=== PATIENT | female | born 1985 | race American Indian/Alaskan Native ===

== ENCOUNTER 2016-10-13 08:57 | Outpatient (CLI) | payer MEDICAID ==
[2016-10-13] MEDS ORDERED: XYLOCAINE TOPICAL 4% TP ONE ×2 (09:12→15:00)
== END 2016-10-13 08:58 | disposition home or self-care (01) ==
LOC: WOUND 08:57
PROVIDERS: ATTEND Internal Medicine
DX: L97.821 Non-pressure chronic ulcer of other part of left lower leg limited to breakdown of skin (principal); D57.1 Sickle-cell disease without crisis; D50.8 Other iron deficiency anemias; Z87.891 Personal history of nicotine dependence
CPT/HCPCS: 11042; 87075; 87116; G0463; 87076; 87186

== ENCOUNTER 2016-10-19 09:15 | Outpatient (CLI) | payer MEDICAID ==
[2016-10-19] MEDS ORDERED: XYLOCAINE TOPICAL 4% TP ONE ×2 (09:24→15:21)
[2016-10-19] MEDS ORDERED: SANTYL TP ONE (10:14)
[2016-10-20] MEDS ORDERED: SANTYL TP SCH (10:00)
== END 2016-10-19 09:16 | disposition home or self-care (01) ==
LOC: WOUND 09:15
PROVIDERS: ATTEND Podiatrist
DX: L97.322 Non-pressure chronic ulcer of left ankle with fat layer exposed (principal); D57.1 Sickle-cell disease without crisis; Z87.891 Personal history of nicotine dependence

== ENCOUNTER 2016-10-26 09:01 | Outpatient (CLI) | payer MEDICAID ==
[2016-10-26] MEDS ORDERED: XYLOCAINE TOPICAL 4% TP ONE (09:29)
== END 2016-10-26 09:02 | disposition home or self-care (01) ==
LOC: WOUND 09:01
PROVIDERS: ATTEND Podiatrist
DX: L97.322 Non-pressure chronic ulcer of left ankle with fat layer exposed (principal); D57.1 Sickle-cell disease without crisis; Z87.891 Personal history of nicotine dependence

== ENCOUNTER 2016-11-16 09:24 | Outpatient (CLI) | payer MEDICAID ==
[2016-11-16] MEDS ORDERED: XYLOCAINE TOPICAL 4% TP ONE ×2 (09:34→10:30)
[2016-11-16] MEDS ORDERED: XYLOCAINE TOPICAL 2% ONE (10:07)
[2016-11-16] MEDS ORDERED: SANTYL TP ONE (10:22)
[2016-11-18] MEDS ORDERED: ANCEF ONE ×2 (05:45→06:59)
[2016-11-18] MEDS ORDERED: BACITRACIN ONE (06:59)
[2016-11-18] MEDS ORDERED: GARAMYCIN ONE (06:59)
[2016-11-18] MEDS ORDERED: DIPRIVAN 10 MG/ML IV ONE (06:59)
[2016-11-18] MEDS ORDERED: DILAUDID ONE (07:00)
[2016-11-18] MEDS ORDERED: XYLOCAINE MPF 2% ONE (07:01)
[2016-11-18] MEDS ORDERED: ZOFRAN ONE (07:01)
[2016-11-18] MEDS ORDERED: DECADRON ONE (07:01)
[2016-11-18] MEDS ORDERED: ePHEDrine SULFATE ONE (07:57)
[2016-11-18] MEDS ORDERED: PHENERGAN ONE (09:30)
[2016-11-18] MEDS ORDERED: PERCOCET 5/325 ONE (09:30)
== END 2016-11-16 09:25 | disposition home or self-care (01) ==
LOC: WOUND 09:24
PROVIDERS: ATTEND Podiatrist
DX: L97.322 Non-pressure chronic ulcer of left ankle with fat layer exposed (principal); L97.312 Non-pressure chronic ulcer of right ankle with fat layer exposed; D57.1 Sickle-cell disease without crisis; D50.8 Other iron deficiency anemias; Z87.891 Personal history of nicotine dependence

== ENCOUNTER 2016-12-01 09:12 | Outpatient (CLI) | payer MEDICAID ==
[~2016-12-01 09:12] MED LIST: XYLOCAINE TOPICAL 4% TP ONE
[2016-12-01] MEDS ORDERED: XYLOCAINE TOPICAL 2% TP ONE ×2 (09:27→15:16)
[2016-12-01] MEDS ORDERED: SANTYL TP ONE ×2 (09:49→15:17)
[2016-12-01] MEDS ORDERED: XYLOCAINE TOPICAL 4% TP ONE (15:16)
== END 2016-12-01 09:13 | disposition home or self-care (01) ==
LOC: WOUND 09:12
PROVIDERS: ATTEND Podiatrist
DX: L97.322 Non-pressure chronic ulcer of left ankle with fat layer exposed (principal); L97.312 Non-pressure chronic ulcer of right ankle with fat layer exposed; D57.1 Sickle-cell disease without crisis; Z87.891 Personal history of nicotine dependence
CPT/HCPCS: 11042; G0463

== ENCOUNTER 2016-12-07 09:13 | Outpatient (CLI) | payer MEDICAID ==
[2016-12-07] MEDS ORDERED: XYLOCAINE TOPICAL 2% TP ONE ×2 (09:39→09:53)
== END 2016-12-07 09:14 | disposition home or self-care (01) ==
LOC: WOUND 09:13
PROVIDERS: ATTEND Podiatrist
DX: L97.322 Non-pressure chronic ulcer of left ankle with fat layer exposed (principal); L97.312 Non-pressure chronic ulcer of right ankle with fat layer exposed; D57.1 Sickle-cell disease without crisis; D50.8 Other iron deficiency anemias; Z87.891 Personal history of nicotine dependence

== ENCOUNTER 2016-12-14 08:45 | Outpatient (CLI) | payer MEDICAID ==
[2016-12-14] MEDS ORDERED: XYLOCAINE TOPICAL 2% TP ONE ×2 (09:16→09:55)
[2016-12-14] MEDS ORDERED: SANTYL TP ONE ×2 (09:38→09:54)
== END 2016-12-14 08:46 | disposition home or self-care (01) ==
LOC: WOUND 08:45
PROVIDERS: ATTEND Podiatrist
DX: L97.322 Non-pressure chronic ulcer of left ankle with fat layer exposed (principal); L97.312 Non-pressure chronic ulcer of right ankle with fat layer exposed; D57.1 Sickle-cell disease without crisis; Z87.891 Personal history of nicotine dependence

== ENCOUNTER 2016-12-21 08:26 | Outpatient (CLI) | payer MEDICAID ==
[2016-12-21] MEDS ORDERED: XYLOCAINE TOPICAL 4% TP ONE ×2 (09:18→12:21)
== END 2016-12-21 08:27 | disposition home or self-care (01) ==
LOC: WOUND 08:26
PROVIDERS: ATTEND Podiatrist
DX: L97.322 Non-pressure chronic ulcer of left ankle with fat layer exposed (principal); L97.312 Non-pressure chronic ulcer of right ankle with fat layer exposed; D57.1 Sickle-cell disease without crisis; D50.8 Other iron deficiency anemias; Z87.891 Personal history of nicotine dependence

== ENCOUNTER 2016-12-28 08:31 | Outpatient (CLI) | payer MEDICAID ==
[2016-12-28] MEDS ORDERED: XYLOCAINE TOPICAL 4% TP ONE ×2 (08:38→13:12)
[2016-12-28] MEDS ORDERED: XYLOCAINE TOPICAL 2% ONE (08:46)
[2016-12-28] MEDS ORDERED: XYLOCAINE TOPICAL 2% TP ONE ×2 (08:47→13:12)
== END 2016-12-28 08:32 | disposition home or self-care (01) ==
LOC: WOUND 08:31
PROVIDERS: ATTEND Podiatrist
DX: L97.311 Non-pressure chronic ulcer of right ankle limited to breakdown of skin (principal); L97.321 Non-pressure chronic ulcer of left ankle limited to breakdown of skin; D50.8 Other iron deficiency anemias; D57.1 Sickle-cell disease without crisis; Z87.891 Personal history of nicotine dependence

== ENCOUNTER 2017-01-04 10:27 | Outpatient (CLI) | payer MEDICAID ==
[2017-01-04] MEDS ORDERED: XYLOCAINE TOPICAL 2% TP ONE (11:06)
[2017-01-04] MEDS ORDERED: XYLOCAINE TOPICAL 4% TP ONE ×2 (11:06→11:35)
== END 2017-01-04 10:28 | disposition home or self-care (01) ==
LOC: WOUND 10:27
PROVIDERS: ATTEND Surgery
DX: L97.322 Non-pressure chronic ulcer of left ankle with fat layer exposed (principal); L97.312 Non-pressure chronic ulcer of right ankle with fat layer exposed; D57.1 Sickle-cell disease without crisis; G47.30 Sleep apnea, unspecified; Z87.891 Personal history of nicotine dependence

== ENCOUNTER 2017-01-11 08:26 | Outpatient (CLI) | payer MEDICAID ==
[2017-01-11] MEDS ORDERED: XYLOCAINE TOPICAL 4% TP ONE (10:00)
[2017-01-11] MEDS ORDERED: XYLOCAINE TOPICAL 2% TP ONE (10:00)
== END 2017-01-11 08:27 | disposition home or self-care (01) ==
LOC: WOUND 08:26
PROVIDERS: ATTEND Surgery
DX: L97.321 Non-pressure chronic ulcer of left ankle limited to breakdown of skin (principal); L97.311 Non-pressure chronic ulcer of right ankle limited to breakdown of skin; D57.1 Sickle-cell disease without crisis; Z87.891 Personal history of nicotine dependence

== ENCOUNTER 2017-01-18 08:32 | Outpatient (CLI) | payer MEDICAID ==
[2017-01-18] MEDS ORDERED: XYLOCAINE TOPICAL 4% TP ONE (08:38)
[2017-01-18] MEDS ORDERED: XYLOCAINE TOPICAL 2% ONE (08:40)
[2017-01-18] MEDS ORDERED: XYLOCAINE TOPICAL 2% TP ONE (10:00)
== END 2017-01-18 08:33 | disposition home or self-care (01) ==
LOC: WOUND 08:32
PROVIDERS: ATTEND Surgery
DX: L97.322 Non-pressure chronic ulcer of left ankle with fat layer exposed (principal); L97.312 Non-pressure chronic ulcer of right ankle with fat layer exposed; D57.1 Sickle-cell disease without crisis; G47.30 Sleep apnea, unspecified; Z87.891 Personal history of nicotine dependence

== ENCOUNTER 2017-01-25 08:32 | Outpatient (CLI) | payer MEDICAID ==
[2017-01-25] MEDS ORDERED: XYLOCAINE TOPICAL 2% TP ONE ×2 (08:44)
[2017-01-25] MEDS ORDERED: XYLOCAINE TOPICAL 4% TP ONE ×2 (08:44)
== END 2017-01-25 08:33 | disposition home or self-care (01) ==
LOC: WOUND 08:32
PROVIDERS: ATTEND Surgery
DX: L97.311 Non-pressure chronic ulcer of right ankle limited to breakdown of skin (principal); D57.80 Other sickle-cell disorders without crisis; Z87.891 Personal history of nicotine dependence
CPT/HCPCS: 97597

== ENCOUNTER 2017-02-01 09:19 | Outpatient (CLI) | payer MEDICAID ==
[2017-02-01] MEDS ORDERED: XYLOCAINE TOPICAL 4% TP ONE (10:08)
[2017-02-01] MEDS ORDERED: XYLOCAINE TOPICAL 2% TP ONE (11:00)
== END 2017-02-01 09:20 | disposition home or self-care (01) ==
LOC: WOUND 09:19
PROVIDERS: ATTEND Surgery
DX: L97.322 Non-pressure chronic ulcer of left ankle with fat layer exposed (principal); L97.312 Non-pressure chronic ulcer of right ankle with fat layer exposed; D57.1 Sickle-cell disease without crisis; G47.30 Sleep apnea, unspecified; Z87.891 Personal history of nicotine dependence

== ENCOUNTER 2017-02-08 09:12 | Outpatient (CLI) | payer MEDICAID ==
[2017-02-08] MEDS ORDERED: XYLOCAINE TOPICAL 4% TP ONE ×2 (09:15→09:34)
[2017-02-08] MEDS ORDERED: XYLOCAINE TOPICAL 2% ONE (09:16)
[2017-02-08] MEDS ORDERED: XYLOCAINE TOPICAL 2% TP ONE (09:34)
== END 2017-02-08 09:13 | disposition home or self-care (01) ==
LOC: WOUND 09:12
PROVIDERS: ATTEND Surgery
DX: L97.322 Non-pressure chronic ulcer of left ankle with fat layer exposed (principal); L97.312 Non-pressure chronic ulcer of right ankle with fat layer exposed; D57.1 Sickle-cell disease without crisis; G47.30 Sleep apnea, unspecified; Z87.891 Personal history of nicotine dependence

== ENCOUNTER 2017-02-15 08:47 | Outpatient (CLI) | payer MEDICAID ==
[2017-02-15] MEDS ORDERED: XYLOCAINE TOPICAL 4% TP ONE (09:08)
[2017-02-15] MEDS ORDERED: XYLOCAINE TOPICAL 2% TP ONE (09:08)
== END 2017-02-15 08:48 | disposition home or self-care (01) ==
LOC: WOUND 08:47
PROVIDERS: ATTEND Surgery
DX: I87.2 Venous insufficiency (chronic) (peripheral) (principal); L97.321 Non-pressure chronic ulcer of left ankle limited to breakdown of skin; L97.311 Non-pressure chronic ulcer of right ankle limited to breakdown of skin; D57.80 Other sickle-cell disorders without crisis; Z87.891 Personal history of nicotine dependence

== ENCOUNTER 2017-02-22 09:11 | Outpatient (CLI) | payer MEDICAID ==
[2017-02-22] MEDS ORDERED: XYLOCAINE TOPICAL 2% TP ONE ×2 (09:19→09:27)
[2017-02-22] MEDS ORDERED: XYLOCAINE TOPICAL 4% TP ONE ×2 (09:27→09:29)
[2017-02-22] MEDS ORDERED: SILVER NITRATE TP ONE ×2 (09:50→15:21)
== END 2017-02-22 09:12 | disposition home or self-care (01) ==
LOC: WOUND 09:11
PROVIDERS: ATTEND Surgery
DX: L97.322 Non-pressure chronic ulcer of left ankle with fat layer exposed (principal); L97.312 Non-pressure chronic ulcer of right ankle with fat layer exposed; D57.1 Sickle-cell disease without crisis; G47.30 Sleep apnea, unspecified; Z87.891 Personal history of nicotine dependence

== ENCOUNTER 2017-03-01 09:07 | Outpatient (CLI) | payer MEDICAID ==
[2017-03-01] MEDS ORDERED: XYLOCAINE TOPICAL 4% TP ONE ×2 (09:17→09:24)
[2017-03-01] MEDS ORDERED: XYLOCAINE TOPICAL 2% ONE (09:17)
[2017-03-01] MEDS ORDERED: XYLOCAINE TOPICAL 2% TP ONE (09:24)
== END 2017-03-01 09:08 | disposition home or self-care (01) ==
LOC: WOUND 09:07
PROVIDERS: ATTEND Surgery
DX: L97.322 Non-pressure chronic ulcer of left ankle with fat layer exposed (principal); L97.312 Non-pressure chronic ulcer of right ankle with fat layer exposed; D57.1 Sickle-cell disease without crisis; G47.30 Sleep apnea, unspecified; Z87.891 Personal history of nicotine dependence

== ENCOUNTER 2017-03-11 08:32 | Outpatient (CLI) | payer MEDICAID ==
[2017-03-11] MEDS ORDERED: XYLOCAINE TOPICAL 2% TP ONE ×2 (08:49→11:30)
[2017-03-11] MEDS ORDERED: XYLOCAINE TOPICAL 4% TP ONE ×2 (08:49→11:30)
== END 2017-03-11 08:33 | disposition home or self-care (01) ==
LOC: WOUND 08:32
PROVIDERS: ATTEND Podiatrist
DX: L97.322 Non-pressure chronic ulcer of left ankle with fat layer exposed (principal); L97.312 Non-pressure chronic ulcer of right ankle with fat layer exposed; D57.1 Sickle-cell disease without crisis; D50.8 Other iron deficiency anemias; G47.30 Sleep apnea, unspecified; Z87.891 Personal history of nicotine dependence

== ENCOUNTER 2017-03-15 08:37 | Outpatient (CLI) | payer MEDICAID ==
[2017-03-15] MEDS ORDERED: XYLOCAINE TOPICAL 2% TP ONE ×2 (08:52→10:00)
[2017-03-15] MEDS ORDERED: XYLOCAINE TOPICAL 4% TP ONE ×2 (08:52→10:00)
== END 2017-03-15 08:38 | disposition home or self-care (01) ==
LOC: WOUND 08:37
PROVIDERS: ATTEND Surgery
DX: L97.322 Non-pressure chronic ulcer of left ankle with fat layer exposed (principal); L97.312 Non-pressure chronic ulcer of right ankle with fat layer exposed; D57.1 Sickle-cell disease without crisis; G47.30 Sleep apnea, unspecified; Z87.891 Personal history of nicotine dependence

== ENCOUNTER 2017-03-22 08:36 | Outpatient (CLI) | payer MEDICAID ==
[2017-03-22] MEDS ORDERED: XYLOCAINE TOPICAL 4% TP ONE (08:53)
[2017-03-22] MEDS ORDERED: XYLOCAINE TOPICAL 2% TP ONE (08:53)
== END 2017-03-22 08:37 | disposition home or self-care (01) ==
LOC: WOUND 08:36
PROVIDERS: ATTEND Surgery
DX: L97.322 Non-pressure chronic ulcer of left ankle with fat layer exposed (principal); L97.312 Non-pressure chronic ulcer of right ankle with fat layer exposed; D57.1 Sickle-cell disease without crisis; G47.30 Sleep apnea, unspecified; Z87.891 Personal history of nicotine dependence

== ENCOUNTER 2017-03-29 08:47 | Outpatient (CLI) | payer MEDICAID ==
[2017-03-29] MEDS ORDERED: XYLOCAINE TOPICAL 2% TP ONE (09:06)
[2017-03-29] MEDS ORDERED: XYLOCAINE TOPICAL 4% TP ONE (12:33)
== END 2017-03-29 08:48 | disposition home or self-care (01) ==
LOC: WOUND 08:47
PROVIDERS: ATTEND Surgery
DX: L97.322 Non-pressure chronic ulcer of left ankle with fat layer exposed (principal); L97.312 Non-pressure chronic ulcer of right ankle with fat layer exposed; D57.1 Sickle-cell disease without crisis; G47.30 Sleep apnea, unspecified; Z87.891 Personal history of nicotine dependence

== ENCOUNTER 2017-04-05 09:42 | Outpatient (CLI) | payer MEDICAID ==
[2017-04-05] MEDS ORDERED: XYLOCAINE TOPICAL 4% TP ONE ×2 (09:52→09:58)
[2017-04-05] MEDS ORDERED: XYLOCAINE TOPICAL 2% TP ONE ×2 (10:05→10:15)
== END 2017-04-05 09:43 | disposition home or self-care (01) ==
LOC: WOUND 09:42
PROVIDERS: ATTEND Surgery
DX: L97.322 Non-pressure chronic ulcer of left ankle with fat layer exposed (principal); L97.312 Non-pressure chronic ulcer of right ankle with fat layer exposed; D57.1 Sickle-cell disease without crisis; G47.30 Sleep apnea, unspecified; Z87.891 Personal history of nicotine dependence

== ENCOUNTER 2019-02-19 09:00 | Emergency (ER) | payer OTHER ==
[2019-02-19 10:15] LABS: Basophils % (Auto) 0.3 % (0.0-1.8); Eosinophils # (Auto) 0.4 K/mm3 (0.0-0.4); Eosinophils % (Auto) 3.6 % (0.0-4.3); Lymphocytes # (Auto) 3.1 K/mm3 (1.2-5.4); Lymphocytes % (Auto) 24.5 % (13.4-35.0); Mean Corpuscular HGB Conc 36 % (30-34); Mean Corpuscular Volume 105 fl (79-97); Monocytes # (Auto) 1.5 K/mm3 (0.0-0.8); Monocytes % (Auto) 11.7 % (0.0-7.3); Platelet Count 351 K/mm3 (140-440); Red Blood Count 1.87 M/mm3 (3.65-5.03); Red Cell Distribution Width 17.8 % (13.2-15.2)
[2019-02-19 10:25] LABS: INR 1.34 (0.87-1.13); Partial Thromboplastin Time 29.9 Sec. (24.2-36.6)
[2019-02-19 10:34] LABS: Hematocrit 19.6 % (30.3-42.9)
[2019-02-19 10:35] LABS: Alanine Aminotransferase 10 units/L (7-56); BUN/Creatinine Ratio 13; Blood Urea Nitrogen 4 mg/dL (7-17); Calcium 8.5 mg/dL (8.4-10.2); Hemolysis Index 3
--- NOTE | 2019-02-19 11:28 | Emergency Department Report ---
HPI - General Chief Complaint: Sickle Cell Crisis Time Seen by Provider: 02/19/19 09:36 - HPI HPI: 33-year-old [place] female presents to the emergency department with 2 different complaints. First, the patient complains of some chronic ulcers to the inside of the ankles that she says are pressure ulcers and she thinks that they have started to become infected, mostly with the left ankle. She says that she has some history of poor circulation and she has a history of sickle cell anemia. She says that she has been changing the bandages daily herself and does not have a primary care physician or care clinic as she has a lack of insurance. Secondly, the patient complains of some irregular vaginal bleeding. She says her last normal menstrual cycle was in December but she is currently having 11 days of vaginal bleeding that was moderate and now has started to just be some spotting. She denies any significant abdominal or pelvic pain. No recent travel or sick contacts at home. The patient has not taken anything for her symptoms prior to presentation. ED Past Medical Hx - Past Medical History Previous Medical History?: Yes Hx Diabetes: No Hx Sickle Cell Disease: Yes Additional medical history: [facility] - Surgical History Past Surgical History?: Yes Hx Cholecystectomy: Yes Additional Surgical History: t&a - Social History Smoking Status: Former Smoker Substance Use Type: Alcohol - Medications Home Medications: Home Medications Medication Instructions Recorded Confirmed Last Taken Type Folic Acid [Folvite] 1 mg PO QDAY 01/04/14 09/02/15 02/06/14 History Acetaminophen-Codeine #3 TAB 1 tab PO Q4-6H PRN 03/31/15 09/02/15 Unknown History Vit-Fe Fumar-FA [ 1 tab PO QDAY #30 tablet 02/19/19 Unknown Rx Vitamin] cephALEXin [Keflex] 500 mg PO Q8HR #21 cap 02/19/19 Unknown Rx ED Review of Systems ROS: Stated complaint: SICKLE CELL ISSUE/SPOTTING/CRAMPS Other details as noted in HPI Comment: All other systems reviewed and negative Constitutional: denies: chills, fever Eyes: denies: eye pain, vision change ENT: denies: ear pain, throat pain Respiratory: denies: cough, shortness of breath Cardiovascular: denies: chest pain, palpitations Gastrointestinal: denies: nausea, vomiting Genitourinary: abnormal menses. denies: dysuria, discharge Musculoskeletal: myalgia. denies: joint swelling Skin: lesions. denies: pruritus Neurological: denies: headache, numbness Physical Exam - Physical Exam Vital Signs: Vital Signs 02/19/19 09:14 Temperature 98.6 F Pulse Rate 90 Respiratory 16 Rate Blood Pressure 106/51 O2 Sat by Pulse 97 Oximetry Physical Exam: GENERAL: The patient is well-developed well-nourished. HENT: Normocephalic. Atraumatic. Patient has moist mucous membranes. EYES: Extraocular motions are intact. Pupils equal reactive to light bilaterally. NECK: Supple. Trachea is midline. CHEST/LUNGS: Clear to auscultation. There is no respiratory distress noted. HEART/CARDIOVASCULAR: Regular. There is no tachycardia. There is no murmur. ABDOMEN: Abdomen is soft, nontender. Patient has normal bowel sounds. There is no abdominal distention. SKIN: The patient has a circular ulcerating wound to each medial ankle/foot with the left greater than right, and both appear to be about a stage II to 3. The left one has some whitish yellowish discharge. NEURO: The patient is awake, alert, and oriented. The patient is cooperative. The patient has no focal neurologic deficits. The patient has normal speech. MUSCULOSKELETAL: There is no tenderness or deformity. There is no evidence of acute injury. ED Course Vital Signs 02/19/19 09:14 Temperature 98.6 F Pulse Rate 90 Respiratory 16 Rate Blood Pressure 106/51 O2 Sat by Pulse 97 Oximetry ED Medical Decision Making - Lab Data Result diagrams: 02/19/19 10:01 02/19/19 10:01 - Radiology Data Radiology results: report reviewed, image reviewed interpreted by me: X-ray of the bilateral ankles does not show any fracture, dislocation, or signs of osteomyelitis ULTRASOUND OB LESS THAN 14 WEEKS FETUS ULTRASOUND OB TRANSVAGINAL History: Vaginal bleeding during . Beta hCG level measures 392.7. Findings: Transabdominal and transvaginal imaging was performed. The uterus measures 8.9 x 2.9 x 6.2 cm. A hypoechoic submucosal fibroid in the left lateral wall measures 1.4 x 1.2 cm. A smaller intramural fibroid in the right lateral wall measures 0.8 cm. There is suggestion of a tiny gestational sac within the endometrium. A tiny pole is suggested. No obvious yolk sac. This could represent a very early intrauterine . heart rate measures 96 beats per minute. The right ovary measures 1.6 x 1.7 x 3.0 cm. A 1.9 cm right ovarian cyst containing a single internal septation is identified. The left ovary is unremarkable measuring 2.6 x 1.5 x 2.8 cm IMPRESSION: Probable very early intrauterine as outlined above. Close interval followup is recommended. Right ovarian cyst. Mild uterine fibroid disease. Transcribed By: TTR Dictated By: LITA BERMAN JR, MD Electronically Authenticated By: LITA BERMAN JR, MD Signed Date/Time: 02/19/19 1420 ULTRASOUND ABDOMEN LIMITED: TECHNIQUE: Transabdominal ultrasound with color Doppler interrogation. HISTORY: Abdominal pain. COMPARISON: none. FINDINGS: LIVER: Normal. BILIARY SYSTEM: Cholecystectomy changes are noted. No biliary dilatation. PANCREAS: Normal. RIGHT KIDNEY: Normal. PROXIMAL AORTA: Normal. ASCITES: None. IMPRESSION: Unremarkable exam. Transcribed By: TTR Dictated By: LITA BERMAN JR, MD Electronically Authenticated By: LITA BERMAN JR, MD Signed Date/Time: 02/19/19 1413 - Medical Decision Making This patient came in for 2 complaints. Regarding the pressure wounds to her ankle/feet, an x-ray was done that does not show any signs of osteomyelitis. The patient does not have any fever and no leukocytosis. They appear to be a stage II and the left one may have some mild discharge but otherwise no gas or crepitus. Patient was placed on some antibiotics and she was given a referral for the wound care center. Regarding her abnormal vaginal bleeding, the patient was found to be with a urine test and then had a quantitative beta hCG of about 400. An ultrasound was done that did show a gestational sac, yolk sac and a very small pole with a heartbeat of about 95 that could show a very early , but with the vaginal bleeding also could be a threatened or impending miscarriage. I spoke to the [facility] service station attendant, Debbie, who says that the patient should follow up in a few days for a repeat hormone level and possibly an ultrasound to evaluate the . Regarding her hemoglobin of 7, they stated that they usually do not necessarily transfuse at this number and will send the patient's home on a clear vitamin with iron. Given that the patient has sickle cell anemia, with this hemoglobin of 7, and still some mild vaginal bleeding, I decided to give the patient 1 unit of packed red blood cells. She was evaluated for this transfusion with no adverse reactions. She was given multiple referrals for [facility]. She will return to the ER for any worsening of her symptoms or any acute distress. Critical Care Time: No Critical care attestation.: If time is entered above; I have spent that time in minutes in the direct care of this critically ill patient, excluding procedure time. ED Disposition Clinical Impression: Threatened miscarriage, Bilateral leg ulcer Sickle cell anemia Qualifiers: Sickle-cell associated disorders: with unspecified crisis Qualified Code(s): D 57.00 - Hb-SS disease with crisis, unspecified Qualifiers: Weeks of gestation: less than 8 weeks Qualified Code(s): Z3A.01 - Less than 8 weeks gestation of Anemia Qualifiers: Anemia type: unspecified type Qualified Code(s): D64.9 - Anemia, unspecified Disposition: TO HOME OR SELFCARE Is pt being admited?: No Condition: Stable Instructions: (ED), Sickle Cell Crisis (ED), Anemia (ED) Additional Instructions: Please follow up with primary care physician and/or mortar carrier. Please follow-up with an [facility] in the next few days for a repeat hormone level and possibly ultrasound. Return to the emergency department with any worsening of your symptoms, especially any increased vaginal bleeding, development of abdominal or pelvic pains, or with any acute distress. Take the vitamins. Take the antibiotics as prescribed. Prescriptions: cephALEXin [Keflex] 500 mg PO Q8HR #21 cap Vit-Fe Fumar-FA [ Vitamin] 1 tab PO QDAY #30 tablet Referrals: [facility] [Provider Group] - 3-5 Days [facility] [Provider Group[facility] - 3-5 Days [facility] [Provider Group] - 3-5 Days [facility] [Outside] - 3-5 Days [facility] [Outside] - 3-5 Days Time of Disposition: 16:10
--- NOTE | 2019-02-19 11:45 | XRay Report ---
BILATERAL ANKLES, 3 VIEWS History: Ankle pain with pressure ulcers. Findings: Soft tissue ulceration is identified medially in both ankles. The bony structures are mildly demineralized. There is no evidence for fracture, bone lesion or bony destruction. No findings to suggest osteomyelitis on x-ray. No significant joint pathology. Impression: Soft tissue findings as described. No acute osseous findings are appreciated.
--- NOTE | 2019-02-19 14:22 | Ultrasound Report ---
ULTRASOUND ABDOMEN LIMITED: TECHNIQUE: Transabdominal ultrasound with color Doppler interrogation. HISTORY: Abdominal pain. COMPARISON: none. FINDINGS: LIVER: Normal. BILIARY SYSTEM: Cholecystectomy changes are noted. No biliary dilatation. PANCREAS: Normal. RIGHT KIDNEY: Normal. PROXIMAL AORTA: Normal. ASCITES: None. IMPRESSION: Unremarkable exam.
--- NOTE | 2019-02-19 14:26 | Ultrasound Report ---
ULTRASOUND OB LESS THAN 14 WEEKS FETUS ULTRASOUND OB TRANSVAGINAL History: Vaginal bleeding during . Beta hCG level measures 392.7. Findings: Transabdominal and transvaginal imaging was performed. The uterus measures 8.9 x 2.9 x 6.2 cm. A hypoechoic submucosal fibroid in the left lateral wall measures 1.4 x 1.2 cm. A smaller intramural fibroid in the right lateral wall measures 0.8 cm. There is suggestion of a tiny gestational sac within the endometrium. A tiny pole is suggested. No obvious yolk sac. This could represent a very early intrauterine . heart rate measures 96 beats per minute. The right ovary measures 1.6 x 1.7 x 3.0 cm. A 1.9 cm right ovarian cyst containing a single internal septation is identified. The left ovary is unremarkable measuring 2.6 x 1.5 x 2.8 cm IMPRESSION: Probable very early intrauterine as outlined above. Close interval followup is recommended. Right ovarian cyst. Mild uterine fibroid disease.
[2019-02-19] MEDS ORDERED: NACL 0.9% 500 ML 500 ML IV ONE (14:48)
[2019-02-19 20:11] VITALS: BP 111/50
== END 2019-02-19 20:10 | disposition home or self-care (01) ==
LOC: ED 09:00
DX: O20.0 Threatened abortion (principal); O99.011 Anemia complicating pregnancy, first trimester; D57.1 Sickle-cell disease without crisis; L97.829 Non-pressure chronic ulcer of other part of left lower leg with unspecified severity; L97.819 Non-pressure chronic ulcer of other part of right lower leg with unspecified severity; Z3A.01 Less than 8 weeks gestation of pregnancy; Z88.2 Allergy status to sulfonamides; Z90.49 Acquired absence of other specified parts of digestive tract; Z87.891 Personal history of nicotine dependence
CPT/HCPCS: 36415; 36430; 73610; 76705; 76801; 76817; 80053; 84702; 84703; 85025; 85045; 85610; 85660; 85730; 86850; 86900; 86901; 86922; 99285; J7040; P9016

== ENCOUNTER 2019-04-09 11:16 | Emergency (ER) | payer SELFPAY ==
[2019-04-09 11:59] VITALS: BP 113/60
[2019-04-09] MEDS ORDERED: IBUPROFEN PO ONE ×2 (12:02→12:05)
--- NOTE | 2019-04-09 12:04 | Event Note ---
ED Screening Note Date of service: 04/09/19 Time: 12:04 ED Screening Note: 33 y/o female comes in for bilateral ankle wounds and left foot swelling. Wound has been for a year. This initial assessment/diagnostic orders/clinical plan/treatment(s) is/are subject to change based on patients health status, clinical progression and re- assessment by fellow clinical providers in the ED. Further treatment and workup at subsequent clinical providers discretion. Patient/guardian urged not to elope from the ED as their condition may be serious if not clinically assessed and managed. Initial orders include:
[2019-04-09 12:19] LABS: Basophils # (Auto) 0.2 K/mm3 (0.0-0.1); Basophils % (Auto) 1.1 % (0.0-1.8); Eosinophils % (Auto) 7.4 % (0.0-4.3); Hemoglobin 7.5 gm/dl (10.1-14.3); Lymphocytes % (Auto) 22.1 % (13.4-35.0); Mean Corpuscular HGB Conc 34 % (30-34); Mean Corpuscular Volume 105 fl (79-97); Monocytes # (Auto) 1.1 K/mm3 (0.0-0.8); Monocytes % (Auto) 8.2 % (0.0-7.3); Platelet Count 420 K/mm3 (140-440); Red Blood Count 2.09 M/mm3 (3.65-5.03); Red Cell Distribution Width 19.4 % (13.2-15.2)
--- NOTE | 2019-04-09 12:46 | XRay Report ---
Left foot, 2 views INDICATION: pain and swelling. COMPARISON: None. IMPRESSION: No acute osseous or soft tissue abnormality. No significant DJD. Mild hallux valgus d eformity is noted. Signer Name: Martin Andrews Jr, MD Signed: 04/09/2019 12:42 PM Workstation Name: [id number]
[2019-04-09 12:55] LABS: Alanine Aminotransferase 12 units/L (7-56); BUN/Creatinine Ratio 10; Blood Urea Nitrogen 2 mg/dL (7-17); Calcium 8.9 mg/dL (8.4-10.2); Hemolysis Index 41
[2019-04-09] MEDS ORDERED: NORCO 10/325 PO ONE (14:46)
[2019-04-09] MEDS ORDERED: ZOFRAN ODT PO ONE (14:46)
--- NOTE | 2019-04-09 14:51 | Emergency Department Report ---
ED General Adult HPI - General Chief complaint: Extremity Injury, Lower Stated complaint: LFT FOOT FRACTURED/PAIN Time Seen by Provider: 04/09/19 11:59 Source: patient Mode of arrival: Ambulatory Limitations: No Limitations - History of Present Illness Initial comments: Patient presents to the emergency department with a chief complaint of pain to the top of her left foot. Patient states she has a history of sickle cell anemia and has a pressure ulcer on the back of her left heel which causes her to walk on her toes." Told the patient states that now she has pain with top of her left foot is concerned about some redness in that area as well. -: Gradual Location: lower extremity Severity scale (0 -10): 7 Quality: aching Consistency: constant Improves with: rest Worsens with: movement Associated Symptoms: denies other symptoms Treatments Prior to Arrival: none - Related Data Home Medications Medication Instructions Recorded Confirmed Last Taken Folic Acid [Folvite] 1 mg PO QDAY 01/04/14 09/02/15 02/06/14 Acetaminophen-Codeine #3 TAB 1 tab PO Q4-6H PRN 03/31/15 09/02/15 Unknown Previous Rx's Medication Instructions Recorded Last Taken Type Vit-Fe Fumar-FA [ 1 tab PO QDAY #30 tablet 02/19/19 Unknown Rx Vitamin] cephALEXin [Keflex] 500 mg PO Q8HR #21 cap 02/19/19 Unknown Rx Clindamycin [Clindamycin CAP] 150 mg PO TID #56 capsule 04/09/19 Unknown Rx HYDROcodone/APAP 7.5-325 [Hoffman 1 each PO Q6HR PRN #15 tablet 04/09/19 Unknown Rx 7.5/325] Allergies Allergy/AdvReac Type Severity Reaction Status Date / Time Sulfa (Sulfonamide Allergy Hives Verified 01/04/14 23:28 Antibiotics) ED Review of Systems ROS: Stated complaint: LFT FOOT FRACTURED/PAIN Other details as noted in HPI Constitutional: denies: chills, fever Eyes: denies: eye pain, eye discharge, vision change ENT: denies: ear pain, throat pain Respiratory: denies: cough, shortness of breath, wheezing Cardiovascular: denies: chest pain, palpitations Endocrine: no symptoms reported Gastrointestinal: denies: abdominal pain, nausea, diarrhea Genitourinary: denies: urgency, dysuria, discharge Musculoskeletal: denies: back pain, joint swelling, arthralgia Skin: denies: rash, lesions Neurological: denies: headache, weakness, paresthesias Psychiatric: denies: anxiety, depression Hematological/Lymphatic: denies: easy bleeding, easy bruising ED Past Medical Hx - Past Medical History Previous Medical History?: Yes Hx Diabetes: No Hx Sickle Cell Disease: Yes Additional medical history: [facility] - Surgical History Past Surgical History?: Yes Hx Cholecystectomy: Yes Additional Surgical History: t&a - Social History Smoking Status: Never Smoker Substance Use Type: None - Medications Home Medications: Home Medications Medication Instructions Recorded Confirmed Last Taken Type Folic Acid [Folvite] 1 mg PO QDAY 01/04/14 09/02/15 02/06/14 History Acetaminophen-Codeine #3 TAB 1 tab PO Q4-6H PRN 03/31/15 09/02/15 Unknown History Vit-Fe Fumar-FA [ 1 tab PO QDAY #30 tablet 02/19/19 Unknown Rx Vitamin] cephALEXin [Keflex] 500 mg PO Q8HR #21 cap 02/19/19 Unknown Rx Clindamycin [Clindamycin CAP] 150 mg PO TID #56 capsule 04/09/19 Unknown Rx HYDROcodone/APAP 7.5-325 [Hoffman 1 each PO Q6HR PRN #15 tablet 04/09/19 Unknown Rx 7.5/325] ED Physical Exam - General Limitations: No Limitations General appearance: alert, in no apparent distress - Head Head exam: Present: atraumatic, normocephalic - Eye Eye exam: Present: normal appearance, scleral icterus (patient states the sclera icterus is normal) - ENT ENT exam: Present: mucous membranes moist - Neck Neck exam: Present: normal inspection - Respiratory Respiratory exam: Present: normal lung sounds bilaterally. Absent: respiratory distress - Cardiovascular Cardiovascular Exam: Present: regular rate, normal rhythm. Absent: systolic murmur, diastolic murmur, rubs, gallop - GI/Abdominal GI/Abdominal exam: Present: soft, normal bowel sounds - Extremities Exam Extremities exam: Present: other (physical pressure also to the posterior aspect of the left lower extremity; the dorsum of the left foot there is inflammation with surrounding erythema and warmth) - Back Exam Back exam: Present: normal inspection - Neurological Exam Neurological exam: Present: alert, oriented X3, CN II-XII intact. Absent: motor sensory deficit - Psychiatric Psychiatric exam: Present: normal affect, normal mood - Skin Skin exam: Present: warm, dry, intact, normal color. Absent: rash ED Course Vital Signs 04/09/19 11:54 Temperature 98.2 F Pulse Rate 79 Respiratory 18 Rate Blood Pressure 113/60 O2 Sat by Pulse 100 Oximetry ED Medical Decision Making - Lab Data Result diagrams: 04/09/19 12:11 04/09/19 12:08 Lab Results 04/09/19 04/09/19 04/09/19 Range/Units 12:08 12:08 12:11 WBC 13.3 H (4.5-11.0) K/mm3 RBC 2.09 L (3.65-5.03) M/mm3 Hgb 7.5 L (10.1-14.3) gm/dl Hct 22.0 L (30.3-42.9) % MCV 105 H (79-97) fl MCH 36 H (28-32) pg MCHC 34 (30-34) % RDW 19.4 H (13.2-15.2) % Plt Count 420 (140-440) K/mm3 Lymph % (Auto) 22.1 (13.4-35.0) % [place] % (Auto) 8.2 H (0.0-7.3) % Eos % (Auto) 7.4 H (0.0-4.3) % Baso % (Auto) 1.1 (0.0-1.8) % Lymph # 3.0 (1.2-5.4) K/mm3 [place] # 1.1 H (0.0-0.8) K/mm3 Eos # 1.0 H (0.0-0.4) K/mm3 Baso # 0.2 H (0.0-0.1) K/mm3 Seg Neutrophils % 61.2 (40.0-70.0) % Seg Neutrophils # 8.2 H (1.8-7.7) K/mm3 Sodium 141 (137-145) mmol/L Potassium 4.0 (3.6-5.0) mmol/L Chloride 107.2 H (98-107) mmol/L Carbon Dioxide 23 (22-30) mmol/L Anion Gap 15 mmol/L BUN 2 L (7-17) mg/dL Creatinine < 0.2 L (0.7-1.2) mg/dL Estimated GFR > 60 ml/min BUN/Creatinine Ratio 10 % Glucose 86 (65-100) mg/dL POC Glucose 112 H (70-105) Calcium 8.9 (8.4-10.2) mg/dL Total Bilirubin 5.80 H (0.1-1.2) mg/dL AST 37 (5-40) units/L ALT 12 (7-56) units/L Alkaline Phosphatase 77 (35-129) units/L Total Protein 7.2 (6.3-8.2) g/dL Albumin 4.0 (3.9-5) g/dL Albumin/Globulin Ratio 1.3 % - Radiology Data Radiology results: report reviewed - Medical Decision Making The patient's prior hemoglobins were reviewed with the last one being 7.0. today the hemoglobin is 7.5 Critical care attestation.: If time is entered above; I have spent that time in minutes in the direct care of this critically ill patient, excluding procedure time. ED Disposition Clinical Impression: Cellulitis, Pressure ulcer of ankle Disposition: DC- TO HOME OR SELFCARE Is pt being admited?: No Does the pt Need Aspirin: No Condition: Stable Instructions: Cellulitis (ED), Acute Wound Care (ED), Pressure Ulcer (ED) Additional Instructions: return if worse Prescriptions: Clindamycin [Clindamycin CAP] 150 mg PO TID #56 capsule HYDROcodone/APAP 7.5-325 [Hoffman 7.5/325] 1 each PO Q6HR PRN #15 tablet PRN Reason: Pain Referrals: SAMIR SADLER MD [Primary Care Provider] - 3-5 Days [facility] [Outside] - 3-5 Days [facility] [Provider Group] - 3-5 Days [facility] [Provider Group] - 3-5 Days Time of Disposition: 14:50
== END 2019-04-09 15:28 | disposition home or self-care (01) ==
LOC: ED 11:16
DX: L03.116 Cellulitis of left lower limb (principal); L89.529 Pressure ulcer of left ankle, unspecified stage; L89.519 Pressure ulcer of right ankle, unspecified stage; D57.00 Hb-SS disease with crisis, unspecified; Z90.49 Acquired absence of other specified parts of digestive tract; Z79.899 Other long term (current) drug therapy; Z88.2 Allergy status to sulfonamides
CPT/HCPCS: 36415; 80053; 82962; 85025; Q0162

== ENCOUNTER 2019-08-30 14:38 | Emergency (ER) | payer SELFPAY ==
--- NOTE | 2019-08-30 16:10 | Event Note ---
ED Screening Note ED Screening Note: yesterday walking up the steps states she felt a popping sensation in her left foot she denies any fall to the ground states she has pain with ambulation PMHx sickle cell allergy: bactrim LNMP: 08/07/19 This initial assessment/diagnostic orders/clinical plan/treatment(s) is/are subject to change based on patients health status, clinical progression and re- assessment by fellow clinical providers in the ED. Further treatment and workup at subsequent clinical providers discretion. Patient/guardian urged not to elope from the ED as their condition may be serious if not clinically assessed and managed. Initial orders include: XR of the left foot
--- NOTE | 2019-08-30 16:45 | XRay Report ---
LEFT FOOT 3 VIEWS INDICATION: popping sensation in the left foot. COMPARISON: Radiographs 04/09/2019. FINDINGS: No acute, displaced fracture or dislocation is seen. There is cortical thickening at the proximal sha ft of the fourth metatarsal which is new since the prior exam and may be due to healed fracture. No f oreign bodies or focal soft tissue swelling. IMPRESSION: 1. No acute findings. Signer Name: Kike Fowler MD Signed: 08/30/2019 4:41 PM Workstation Name: [id number]
--- NOTE | 2019-08-30 19:58 | Emergency Department Report ---
HPI - General Chief Complaint: Extremity Injury, Lower Time Seen by Provider: 08/30/19 16:09 - HPI HPI: 34-year-old female presents to the emergency department with complaint of left foot pain and swelling after she was climbing some stairs last night and heard a popping sound followed by the pain. Since that time the patient says she has increased pain with ambulating which has made it difficult for her. She has not taken anything for her symptoms prior to arrival today. She has a history of sickle cell disease. 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 - Surgical History Hx Cholecystectomy: Yes Additional Surgical History: t&a - Social History Smoking Status: Never Smoker Substance Use Type: None - Medications Home Medications: Home Medications Medication Instructions Recorded Confirmed Last Taken Type Folic Acid [Folvite] 1 mg PO QDAY 01/04/14 09/02/15 02/06/14 History Acetaminophen-Codeine #3 TAB 1 tab PO Q4-6H PRN 03/31/15 09/02/15 Unknown History Vit-Fe Fumar-FA [ 1 tab PO QDAY #30 tablet 02/19/19 Unknown Rx Vitamin] cephALEXin [Keflex] 500 mg PO Q8HR #21 cap 02/19/19 Unknown Rx Clindamycin [Clindamycin CAP] 150 mg PO TID #56 capsule 04/09/19 Unknown Rx HYDROcodone/APAP 7.5-325 [[place] 1 each PO Q6HR PRN #15 tablet 04/09/19 Unknown Rx 7.5/325] Ibuprofen [Motrin 600 MG tab] 600 mg PO Q8H PRN #20 tablet 08/30/19 Unknown Rx ED Review of Systems ROS: Stated complaint: LEFT FOOT INJURY Other details as noted in HPI Comment: All other systems reviewed and negative Constitutional: denies: chills, fever Musculoskeletal: joint swelling, arthralgia Skin: denies: rash, lesions Neurological: denies: numbness, paresthesias Physical Exam - Physical Exam Vital Signs: Vital Signs 08/30/19 16:08 Temperature 98.3 F Pulse Rate 89 Respiratory 12 Rate Blood Pressure 129/63 O2 Sat by Pulse 98 Oximetry Physical Exam: GENERAL: The patient is well-developed well-nourished. HEENT: Normocephalic. Atraumatic. Patient has moist mucous membranes. EYES: Extraocular motions are intact. NECK: Supple. Trachea is midline SKIN: Skin is warm and dry. NEURO: The patient is awake, alert, and oriented. The patient is cooperative. Normal speech. MUSCULOSKELETAL: There is some tenderness to palpation to the distal left foot but no obvious deformity. +2 over 4 dorsalis pedis pulse. ED Course Vital Signs 08/30/19 16:08 Temperature 98.3 F Pulse Rate 89 Respiratory 12 Rate Blood Pressure 129/63 O2 Sat by Pulse 98 Oximetry ED Medical Decision Making - Radiology Data Radiology results: image reviewed interpreted by me: X-ray of the left foot does not show any fracture, dislocation, or any acute process. - Medical Decision Making This patient felt a pop and began having pain in her distal left foot after walking up some stairs last night. No obvious deformity seen on examination. Reproducible tenderness to palpation. X-ray negative for any acute fracture or dislocation. Patient was offered crutches but declines. Given a postop surgical sandal and referrals for an orthopedist and commissioned police officer. - Differential Diagnosis foot fracture, dislocation, foot sprain, ligament/tendon injury Critical Care Time: No Critical care attestation.: If time is entered above; I have spent that time in minutes in the direct care of this critically ill patient, excluding procedure time. ED Disposition Clinical Impression: Left foot pain Disposition: TO HOME OR SELFCARE Is pt being admited?: No Condition: Stable Instructions: Arthralgia (ED) Additional Instructions: I am giving you a referral for a local orthopedist, Dr. Hickman, and a local commissioned police officer, Dr. Underwood, to follow up regarding your left foot pain. Return to the emergency Department with any worsening of your symptoms or any acute distress. Prescriptions: Ibuprofen [Motrin 600 MG tab] 600 mg PO Q8H PRN #20 tablet PRN Reason: Pain Referrals: OLEGARIO HICKMAN MD [Staff Physician] - 3-5 Days TYESHA UNDERWOOD DPM [Staff Physician] - 3-5 Days Forms: Work/School Release Form(ED) Time of Disposition: 19:58
[2019-08-30 22:39] VITALS: BP 124/86
== END 2019-08-30 20:25 | disposition home or self-care (01) ==
LOC: ED 14:38
DX: M79.672 Pain in left foot (principal); Z79.899 Other long term (current) drug therapy; Z88.2 Allergy status to sulfonamides; Z98.890 Other specified postprocedural states; Z79.1 Long term (current) use of non-steroidal anti-inflammatories (NSAID)

== ENCOUNTER 2019-10-21 01:42 | Inpatient (IN) | payer OTHER ==
[2019-10-21] MEDS ORDERED: ONDANSETRON 4 MG/2 ML INJ IV ONE (03:59)
[2019-10-21] MEDS ORDERED: SODIUM CHLORIDE 0.9% 1000 ML 1,000 ML IV ONE ×2 (03:59→19:38)
[2019-10-21] MEDS ORDERED: MORPHINE 2 MG/1 ML INJ IV ONE ×2 (03:59→04:48)
[2019-10-21] MEDS ORDERED: KETOROLAC 30 MG/1 ML INJ IV ONE (03:59)
--- NOTE | 2019-10-21 04:05 | Emergency Department Report ---
ED General Adult HPI - General Chief complaint: Sickle Cell Crisis Stated complaint: SICKLE CELL PAIN Time Seen by Provider: 10/21/19 03:49 Source: patient Mode of arrival: Ambulatory Limitations: No Limitations - History of Present Illness Initial comments: 34-year-old female with history of sickle cell presents to ED with generalized pain x1 day. Patient states she awoke with pain yesterday morning. States she took some ibuprofen, but awoke early this morning with worsening pain. She reports majority of her pain in her back and legs. Patient denies any chest pain, shortness of breath, cough, fever. Patient reports last blood transfusion was sometime last year. She does not currently have a transition social worker. -: days(s) (1) Location: back, left, right, lower extremity Quality: aching Consistency: constant Improves with: none Associated Symptoms: denies: chest pain, cough, fever/chills, shortness of breath - Related Data Home Medications Medication Instructions Recorded Confirmed Last Taken Folic Acid [Folvite] 1 mg PO QDAY 01/04/14 09/02/15 02/06/14 Acetaminophen-Codeine #3 TAB 1 tab PO Q4-6H PRN 03/31/15 09/02/15 Unknown Previous Rx's Medication Instructions Recorded Last Taken Type Vit-Fe Fumar-FA [ 1 tab PO QDAY #30 tablet 02/19/19 Unknown Rx Vitamin] cephALEXin [Keflex] 500 mg PO Q8HR #21 cap 02/19/19 Unknown Rx Clindamycin [Clindamycin CAP] 150 mg PO TID #56 capsule 04/09/19 Unknown Rx HYDROcodone/APAP 7.5-325 [[place] 1 each PO Q6HR PRN #15 tablet 04/09/19 Unknown Rx 7.5/325] Ibuprofen [Motrin 600 MG tab] 600 mg PO Q8H PRN #20 tablet 08/30/19 Unknown Rx Allergies Allergy/AdvReac Type Severity Reaction Status Date / Time Sulfa (Sulfonamide Allergy Hives Verified 01/04/14 23:28 Antibiotics) ED Review of Systems ROS: Stated complaint: SICKLE CELL PAIN Other details as noted in HPI Comment: All other systems reviewed and negative Constitutional: denies: chills, fever Respiratory: denies: cough, shortness of breath Cardiovascular: denies: chest pain Gastrointestinal: denies: abdominal pain, nausea, vomiting Musculoskeletal: as per HPI ED Past Medical Hx - Past Medical History Previous Medical History?: Yes Hx Diabetes: No Hx Sickle Cell Disease: Yes Additional medical history: la nena al - Surgical History Past Surgical History?: Yes Hx Cholecystectomy: Yes Additional Surgical History: t&a - Social History Smoking Status: Never Smoker Substance Use Type: None - Medications Home Medications: Home Medications Medication Instructions Recorded Confirmed Last Taken Type Folic Acid [Folvite] 1 mg PO QDAY 01/04/14 09/02/15 02/06/14 History Acetaminophen-Codeine #3 TAB 1 tab PO Q4-6H PRN 03/31/15 09/02/15 Unknown History Vit-Fe Fumar-FA [ 1 tab PO QDAY #30 tablet 02/19/19 Unknown Rx Vitamin] cephALEXin [Keflex] 500 mg PO Q8HR #21 cap 02/19/19 Unknown Rx Clindamycin [Clindamycin CAP] 150 mg PO TID #56 capsule 04/09/19 Unknown Rx HYDROcodone/APAP 7.5-325 [[place] 1 each PO Q6HR PRN #15 tablet 04/09/19 Unknown Rx 7.5/325] Ibuprofen [Motrin 600 MG tab] 600 mg PO Q8H PRN #20 tablet 08/30/19 Unknown Rx ED Physical Exam - General Limitations: No Limitations General appearance: alert, in no apparent distress - Head Head exam: Present: atraumatic, normocephalic - Eye Eye exam: Present: normal appearance, EOMI - ENT ENT exam: Present: mucous membranes moist - Neck Neck exam: Present: normal inspection - Respiratory Respiratory exam: Present: normal lung sounds bilaterally. Absent: respiratory distress - Cardiovascular Cardiovascular Exam: Present: normal rhythm, tachycardia - GI/Abdominal GI/Abdominal exam: Present: soft. Absent: distended, tenderness - Extremities Exam Extremities exam: Present: normal inspection - Neurological Exam Neurological exam: Present: alert, oriented X3 - Psychiatric Psychiatric exam: Present: normal affect, normal mood - Skin Skin exam: Present: warm, dry, intact, normal color. Absent: rash ED Course Vital Signs 10/21/19 10/21/19 10/21/19 01:54 03:45 03:59 Temperature 98.5 F 98.5 F Pulse Rate 125 H 95 H 91 H Respiratory 18 18 34 H Rate Blood Pressure 137/85 Blood Pressure 115/60 [left arm] O2 Sat by Pulse 93 98 99 Oximetry 10/21/19 10/21/19 10/21/19 04:00 04:16 04:30 Temperature Pulse Rate 95 H 90 84 Respiratory 21 28 H 28 H Rate Blood Pressure Blood Pressure [left arm] O2 Sat by Pulse 98 94 96 Oximetry - Reevaluation(s) Reevaluation #1: 10/21/19 04:49 Patient has hemoglobin of 6.9. Patient is unsure of her baseline, but states her last transition social worker told her that she should be transfused for anything below 7.6. 1 unit of PRBCs ordered. Will admit to hospitalist. ED Medical Decision Making - Lab Data Result diagrams: 10/21/19 03:27 - Medical Decision Making 34-year-old female with sickle cell pain crisis. Patient received 2 doses of morphine here in the ED, and reports improvement of pain. However, patient has hemoglobin of 6.9 with retic count of 20. Will admit patient for transfusion and pain management. Spoke with hospitalist, Dr. Chong, who will admit for fur ther management. - Differential Diagnosis anemia requiring transfusiion, pain crisis Critical Care Time: Yes Critical care time in (mins) excluding proc time.: 35 Critical care attestation.: If time is entered above; I have spent that time in minutes in the direct care of this critically ill patient, excluding procedure time. Critical Care Time: 35 min ED Disposition Clinical Impression: Sickle cell anemia with crisis Disposition: DC-09 OP ADMIT IP TO THIS HOSP Is pt being admited?: Yes Condition: Stable Referrals: SAMIR SADLER MD [Primary Care Provider] - 3-5 Days Time of Disposition: 04:51
[2019-10-21 04:15] LABS: Basophils # (Auto) 0.3 K/mm3 (0.0-0.1); Basophils % (Auto) 1.6 % (0.0-1.8); Eosinophils % (Auto) 10.9 % (0.0-4.3); Hemoglobin 6.9 gm/dl (10.1-14.3); Lymphocytes # (Auto) 2.8 K/mm3 (1.2-5.4); Lymphocytes % (Auto) 15.2 % (13.4-35.0); Mean Corpuscular HGB Conc 35 % (30-34); Mean Corpuscular Volume 101 fl (79-97); Monocytes # (Auto) 1.4 K/mm3 (0.0-0.8); Monocytes % (Auto) 7.4 % (0.0-7.3); Platelet Count 390 K/mm3 (140-440); Red Blood Count 1.98 M/mm3 (3.65-5.03); Red Cell Distribution Width 17.3 % (13.2-15.2)
[2019-10-21] MEDS ORDERED: SODIUM CHLORIDE 0.9% 500 ML 500 ML IV ONE (04:48)
[2019-10-21 05:24] LABS: BUN/Creatinine Ratio 20; Blood Urea Nitrogen 6 mg/dL (7-17); Calcium 7.8 mg/dL (8.4-10.2); Hemolysis Index 3
[2019-10-21] MEDS ORDERED: MAGNESIUM HYDROXIDE (MOM) ORAL LIQD UDC PO PRN (08:10)
[2019-10-21] MEDS ORDERED: ONDANSETRON 4 MG/2 ML INJ ONE (08:37)
[2019-10-21] MEDS ORDERED: MORPHINE 4 MG/1 ML INJ ONE (08:38)
[2019-10-21] MEDS: MORPHINE 4 MG/1 ML INJ IV PRN ×2 (08:43→21:56)
[2019-10-21] MEDS: ONDANSETRON 4 MG/2 ML INJ IV PRN (08:44)
[2019-10-21] MEDS ORDERED: FOLIC ACID 1 MG TAB ONE (09:47)
[2019-10-21] MEDS ORDERED: MULTIVITAMINS ,THERAPEUTIC TAB PO ONE (09:47)
[2019-10-21] MEDS ORDERED: D5W/0.45% NACL 1,000 ML IV ONE (09:47)
[2019-10-21] MEDS: oxyCODONE ER 20 MG TAB PO SCH ×2 (10:06→19:42)
[2019-10-21] MEDS: FOLIC ACID 1 MG TAB PO SCH (10:08)
[2019-10-21] MEDS: MULTIVITAMINS ,THERAPEUTIC TAB PO SCH (10:08)
[2019-10-21] MEDS: D5W/0.45% NACL 1,000 ML IV SCH ×2 (10:08→21:29)
--- NOTE | 2019-10-21 12:15 | History and Physical Report ---
History of Present Illness Date of examination: 10/21/19 Date of admission: 10/21/19 04:52 Chief complaint: Back pains, joint pains, pain lower extremities History of present illness: Patient is 34-year-old with sickle cell disease. She presents with leg, back and joint pain for few days. At home she took Ibuprofen with no improvements. Pain was getting worse therefore came to the emergency department for further evaluation. Pain was 10 out of 10 in intensity, sharp pain with no radiation. She was seen and evaluated in the emergency department. Diagnosed with sickle cell vaso-occlusive crisis. Hemoglobin is 6.9. Will place on observation for further management. Past History Past Medical History: other (Sickle cell disease) Past Surgical History: cholecystectomy, tonsillectomy Social history: full code. denies: smoking, alcohol abuse, IV drug use Family history: other (Sickle cell disease) Medications and Allergies Allergies Allergy/AdvReac Type Severity Reaction Status Date / Time Sulfa (Sulfonamide Allergy Hives Verified 01/04/14 23:28 Antibiotics) Active Meds: Active Medications Acetaminophen/Hydrocodone Bitart ([place] 10/325) 1 each PO Q4H PRN PRN Reason: Pain, Moderate (4-6) Bisacodyl (Dulcolax) 10 mg [place] QDAY PRN PRN Reason: Constipation unrelieved by MOM Folic Acid (Folvite) 1 mg PO QDAY [facility] Last Admin: 10/21/19 10:08 Dose: 1 mg Documented by: Dextrose/Sodium Chloride (D5/0.45ns) 1,000 mls @ 75 mls/hr IV DIRECT [facility] Last Admin: 10/21/19 10:08 Dose: 75 mls/hr Documented by: Magnesium Hydroxide (Milk Of Magnesia) 30 ml PO Q4H PRN PRN Reason: Constipation Morphine Sulfate (Morphine) 4 mg IV Q2H PRN PRN Reason: Pain , Severe (7-10) Stop: 10/22/19 08:09 Last Admin: 10/21/19 08:43 Dose: 4 mg Documented by: Multivitamins (Theragran Tab) 1 each PO QDAY ADAMARIS Last Admin: 10/21/19 10:08 Dose: 1 each Documented by: Ondansetron HCl (Zofran) 4 mg IV Q8H PRN PRN Reason: Nausea And Vomiting Last Admin: 10/21/19 08:44 Dose: 4 mg Documented by: Oxycodone HCl (Oxycontin) 20 mg PO Q8H [facility] Last Admin: 10/21/19 10:06 Dose: 20 mg Documented by: Senbarbara (Senokot) 17.2 mg PO QHS [facility] Review of Systems All systems: negative (No fever, no cough, no headace, no SOB. All other systems reviewed and are negative) Exam - Physical Exam Narrative exam: GEN: Not in acute distress, lying in bed, malnourished HEENT: Normocephalic, atraumatic, Neck: supple, No JVD Lungs: Clear, no crackles, , no wheeze, heart;S1 and S2 reg, no murmurs, rubs or gallop Abd:soft, non tender , non distended, normal bowel sounds Ext: No edema, no clubbing, no cyanosis Neuro: Awake,alert, oriented X 3, no focal neurological signs - Constitutional Vitals: Temp Pulse Resp BP Pulse Ox 98.5 F 70 13 107/47 99 10/21/19 03:45 10/21/19 09:00 10/21/19 10:06 10/21/19 09:00 10/21/19 09:00 Results - Labs CBC & Chem 7: 10/21/19 03:27 10/21/19 04:58 Labs: Abnormal lab results 10/21/19 10/21/19 10/21/19 Range/Units 03:27 04:58 04:58 WBC 18.3 H (4.5-11.0) K/mm3 RBC 1.98 L (3.65-5.03) M/mm3 Hgb 6.9 L (10.1-14.3) gm/dl Hct 20.0 L (30.3-42.9) % MCV 101 H (79-97) fl MCH 35 H (28-32) pg MCHC 35 H (30-34) % RDW 17.3 H (13.2-15.2) % [place] % (Auto) 7.4 H (0.0-7.3) % Eos % (Auto) 10.9 H (0.0-4.3) % [place] # 1.4 H (0.0-0.8) K/mm3 Eos # 2.0 H (0.0-0.4) K/mm3 Baso # 0.3 H (0.0-0.1) K/mm3 Seg Neutrophils # 11.9 H (1.8-7.7) K/mm3 Percent Retic 20.13 H (0.78-2.58) % Chloride 108.4 H (98-107) mmol/L BUN 6 L (7-17) mg/dL Creatinine 0.3 L (0.7-1.2) mg/dL Calcium 7.8 L (8.4-10.2) mg/dL Crossmatch See Detail Assessment and Plan Sickle cell vaso-occlusive crisis Place on observation Sickle cell protocol iv fluids Pain management Anemia Hgb 6.9 Transfuse 1 unit leukocytosis Likely reactive Monitor Repeat in am Full code status.
[2019-10-21] MEDS: ENOXAPARIN 40 MG/0.4 ML INJ SUB-Q SCH (21:29)
[2019-10-21] MEDS: SENNOSIDES 8.6 MG TAB PO SCH (21:30)
[2019-10-22] MEDS: oxyCODONE ER 20 MG TAB PO SCH ×3 (02:00→17:47)
[2019-10-22] MEDS: ONDANSETRON 4 MG/2 ML INJ IV PRN ×3 (02:50→17:47)
[2019-10-22] MEDS: HYDROcodone/ACETAMINOPHEN 10-325MG TAB PO PRN ×2 (06:47→21:47)
[2019-10-22 07:32] LABS: Hematocrit 22.4 % (30.3-42.9); Mean Corpuscular HGB Conc 36 % (30-34); Mean Corpuscular Volume 98 fl (79-97); Platelet Count 366 K/mm3 (140-440); Red Blood Count 2.29 M/mm3 (3.65-5.03)
[2019-10-22 07:51] LABS: Red Cell Distribution Width 20.1 % (13.2-15.2)
[2019-10-22 09:28] LABS: Basophils % (Manual) 0 % (0.0-1.8); Total Cells Counted 100
[2019-10-22 10:00] LABS: Anisocytosis 1+; Sickle Cells 2+
[2019-10-22 10:01] LABS: Platelet Estimate Consistent w Auto; Target Cells Few
[2019-10-22] MEDS: D5W/0.45% NACL 1,000 ML IV SCH (10:11)
[2019-10-22] MEDS: MULTIVITAMINS ,THERAPEUTIC TAB PO SCH (10:18)
[2019-10-22] MEDS: FOLIC ACID 1 MG TAB PO SCH (10:18)
--- NOTE | 2019-10-22 16:25 | Progress Note ---
Assessment and Plan Assessment and plan: Sickle cell vaso-occlusive crisis Placed on observation Will change to inpatient Sickle cell protocol iv fluids Pain management Anemia Hgb 6.9 on admission Transfused 1 unit PRBC now hgb 8.0 leukocytosis may be due to SIRS Likely reactive Monitor Full code status. patient still in pain, not stable for discharge yet. History Interval history: Dizziness less body pains Hospitalist Physical - Physical exam Narrative exam: GEN: Not in acute distress, lying in bed, HEENT: Normocephalic, atraumatic, Neck: supple, No JVD Lungs: Clear, no crackles, , no wheeze, heart;S1 and S2 reg, no murmurs, rubs or gallop Abd:soft, non tender , non distended, normal bowel sounds Ext: No edema, no clubbing, no cyanosis Neuro: Awake,alert, oriented X 3, no focal neurological signs - Constitutional Vitals: Temp Pulse Resp BP Pulse Ox 99.5 F 104 H 18 119/47 92 10/22/19 04:55 10/22/19 04:55 10/22/19 06:47 10/22/19 04:55 10/22/19 04:55 BUSTER score - Buster Score Age > 65: (0) No Aspirin use within the Past 7 Days: (0) No 3 or more CAD Risk Factors: (0) No 2 or more Angina events in past 24 hrs: (0) No Known CAD with more than 50% Stenosis: (0) No Elevated Cardiac Markers: (0) No ST Deviation Greater than 0.5mm: (0) No BUSTER Score: 0 Results - Labs CBC & Chem 7: 10/22/19 07:14 10/21/19 04:58 Labs: Laboratory Last Values WBC 16.4 K/mm3 (4.5-11.0) H 10/22/19 07:14 RBC 2.29 M/mm3 (3.65-5.03) L 10/22/19 07:14 Hgb 8.0 gm/dl (10.1-14.3) L 10/22/19 07:14 Hct 22.4 % (30.3-42.9) L 10/22/19 07:14 MCV 98 fl (79-97) H 10/22/19 07:14 MCH 35 pg (28-32) H 10/22/19 07:14 MCHC 36 % (30-34) H 10/22/19 07:14 RDW 20.1 % (13.2-15.2) H 10/22/19 07:14 Plt Count 366 K/mm3 (140-440) 10/22/19 07:14 Lymph % (Auto) 15.2 % (13.4-35.0) 10/21/19 03:27 [place] % (Auto) 7.4 % (0.0-7.3) H 10/21/19 03:27 Eos % (Auto) 10.9 % (0.0-4.3) H 10/21/19 03:27 Baso % (Auto) 1.6 % (0.0-1.8) 10/21/19 03:27 Lymph # 2.8 K/mm3 (1.2-5.4) 10/21/19 03:27 [place] # 1.4 K/mm3 (0.0-0.8) H 10/21/19 03:27 Eos # 2.0 K/mm3 (0.0-0.4) H 10/21/19 03:27 Baso # 0.3 K/mm3 (0.0-0.1) H 10/21/19 03:27 Add Manual Diff Complete 10/22/19 07:14 Total Counted 100 10/22/19 07:14 Seg Neutrophils % 64.9 % (40.0-70.0) 10/21/19 03:27 Seg Neuts % (Manual) 76.0 % (40.0-70.0) H 10/22/19 07:14 Band Neutrophils % 0 % 10/22/19 07:14 Lymphocytes % (Manual) 13.0 % (13.4-35.0) L 10/22/19 07:14 Reactive Lymphs % (Man) 1.0 % 10/22/19 07:14 Monocytes % (Manual) 2.0 % (0.0-7.3) 10/22/19 07:14 Eosinophils % (Manual) 7.0 % (0.0-4.3) H 10/22/19 07:14 Basophils % (Manual) 0 % (0.0-1.8) 10/22/19 07:14 Metamyelocytes % 1.0 % 10/22/19 07:14 Myelocytes % 0 % 10/22/19 07:14 Promyelocytes % 0 % 10/22/19 07:14 Blast Cells % 0 % 10/22/19 07:14 Nucleated RBC % 6.0 % (0.0-0.9) H 10/22/19 07:14 Seg Neutrophils # 11.9 K/mm3 (1.8-7.7) H 10/21/19 03:27 Seg Neutrophils # Man 12.5 K/mm3 (1.8-7.7) H 10/22/19 07:14 Band Neutrophils # 0.0 K/mm3 10/22/19 07:14 Lymphocytes # (Manual) 2.1 K/mm3 (1.2-5.4) 10/22/19 07:14 Abs React Lymphs (Man) 0.2 K/mm3 10/22/19 07:14 Monocytes # (Manual) 0.3 K/mm3 (0.0-0.8) 10/22/19 07:14 Eosinophils # (Manual) 1.1 K/mm3 (0.0-0.4) H 10/22/19 07:14 Basophils # (Manual) 0.0 K/mm3 (0.0-0.1) 10/22/19 07:14 Metamyelocytes # 0.2 K/mm3 10/22/19 07:14 Myelocytes # 0.0 K/mm3 10/22/19 07:14 Promyelocytes # 0.0 K/mm3 10/22/19 07:14 Blast Cells # 0.0 K/mm3 10/22/19 07:14 WBC Morphology Not Reportable 10/22/19 07:14 Hypersegmented Neuts Not Reportable 10/22/19 07:14 Hyposegmented Neuts Not Reportable 10/22/19 07:14 Hypogranular Neuts Not Reportable 10/22/19 07:14 Smudge Cells Not Reportable 10/22/19 07:14 Toxic Granulation Not Reportable 10/22/19 07:14 Toxic Vacuolation Not Reportable 10/22/19 07:14 Dohle Bodies Not Reportable 10/22/19 07:14 Pelger-Huet Anomaly Not Reportable 10/22/19 07:14 Marielos Rods Not Reportable 10/22/19 07:14 Platelet Estimate Consistent w auto 10/22/19 07:14 Clumped Platelets Not Reportable 10/22/19 07:14 Plt Clumps, EDTA Not Reportable 10/22/19 07:14 Large Platelets Not Reportable 10/22/19 07:14 Giant Platelets Not Reportable 10/22/19 07:14 Platelet Satelliting Not Reportable 10/22/19 07:14 Plt Morphology Comment Not Reportable 10/22/19 07:14 RBC Morphology Not Reportable 10/22/19 07:14 Dimorphic RBCs Not Reportable 10/22/19 07:14 Polychromasia 1+ 10/22/19 07:14 Hypochromasia Not Reportable 10/22/19 07:14 Poikilocytosis Not Reportable 10/22/19 07:14 Anisocytosis 1+ 10/22/19 07:14 Microcytosis Not Reportable 10/22/19 07:14 Macrocytosis Not Reportable 10/22/19 07:14 Spherocytes Not Reportable 10/22/19 07:14 Pappenheimer Bodies Not Reportable 10/22/19 07:14 Sickle Cells 2+ 10/22/19 07:14 Target Cells Few 10/22/19 07:14 Tear Drop Cells Not Reportable 10/22/19 07:14 Ovalocytes Not Reportable 10/22/19 07:14 Helmet Cells Not Reportable 10/22/19 07:14 Mc-Progress Bodies Not Reportable 10/22/19 07:14 [place] Rings Not Reportable 10/22/19 07:14 Roxana Cells Not Reportable 10/22/19 07:14 Bite Cells Not Reportable 10/22/19 07:14 Crenated Cell Not Reportable 10/22/19 07:14 Elliptocytes Not Reportable 10/22/19 07:14 Acanthocytes (Spur) Not Reportable 10/22/19 07:14 Rouleaux Not Reportable 10/22/19 07:14 Hemoglobin C Crystals Not Reportable 10/22/19 07:14 Schistocytes Not Reportable 10/22/19 07:14 Malaria parasites Not Reportable 10/22/19 07:14 Percent Retic 20.08 % (0.78-2.58) H 10/22/19 07:14 [place] Bodies Not Reportable 10/22/19 07:14 Hem Pathologist Commnt No 10/22/19 07:14 Sodium 141 mmol/L (137-145) 10/21/19 04:58 Potassium 3.8 mmol/L (3.6-5.0) 10/21/19 04:58 Chloride 108.4 mmol/L (98-107) H 10/21/19 04:58 Carbon Dioxide 22 mmol/L (22-30) 10/21/19 04:58 Anion Gap 14 mmol/L 10/21/19 04:58 BUN 6 mg/dL (7-17) L 10/21/19 04:58 Creatinine 0.3 mg/dL (0.7-1.2) L 10/21/19 04:58 Estimated GFR > 60 ml/min 10/21/19 04:58 BUN/Creatinine Ratio 20 % 10/21/19 04:58 Glucose 99 mg/dL (65-100) 10/21/19 04:58 Calcium 7.8 mg/dL (8.4-10.2) L 10/21/19 04:58 Lactate Dehydrogenase 329 units/L (91-180) H 10/22/19 07:14 Blood Type A POSITIVE 10/21/19 04:58 Antibody Screen Positive 10/21/19 04:58 Antibody Identification Anti-E 10/21/19 04:58 Crossmatch See Detail 10/21/19 04:58 Active Medications - Current Medications Current Medications: Generic Name Dose Route Start Last Admin Trade Name Freq PRN Reason Stop Dose Admin Acetaminophen/Hydrocodone Bitart 1 each 10/21/19 08:10 10/22/19 06:47 [place] 10/325 PO 1 each Q4H PRN Administration Pain, Moderate (4-6) Bisacodyl 10 mg 10/21/19 08:10 Dulcolax [place] QDAY PRN Constipation unrelieved by MOM Enoxaparin Sodium 40 mg 10/21/19 22:00 10/21/19 21:29 Enoxaparin SUB-Q 40 mg QDAY@2200 ADAMARIS Administration Folic Acid 1 mg 10/21/19 10:00 10/22/19 10:18 Folvite PO 1 mg QDAY ADAMARIS Administration Dextrose/Sodium Chloride 1,000 mls @ 75 mls/hr 10/21/19 09:00 10/22/19 10:11 D5/0.45ns IV 75 mls/hr DIRECT ADAMARIS Administration Magnesium Hydroxide 30 ml 10/21/19 08:10 Milk Of Magnesia PO Q4H PRN Constipation Multivitamins 1 each 10/21/19 10:00 10/22/19 10:18 Theragran Tab PO 1 each QDAY ADAMARIS Administration Ondansetron HCl 4 mg 10/21/19 08:10 10/22/19 10:10 Zofran IV 4 mg Q8H PRN Administration Nausea And Vomiting Oxycodone HCl 20 mg 10/21/19 09:00 10/22/19 10:18 Oxycontin PO 20 mg Q8H ADAMARIS Administration Senna 17.2 mg 10/21/19 22:00 10/21/19 21:30 Senokot PO 17.2 mg QHS ADAMARIS Administration
[2019-10-22] MEDS: ENOXAPARIN 40 MG/0.4 ML INJ SUB-Q SCH (21:44)
[2019-10-22] MEDS: SENNOSIDES 8.6 MG TAB PO SCH (21:45)
[2019-10-23] MEDS: D5W/0.45% NACL 1,000 ML IV SCH (00:39)
[2019-10-23] MEDS: oxyCODONE ER 20 MG TAB PO SCH ×2 (01:00→10:06)
[2019-10-23 06:33] LABS: Hematocrit 23.4 % (30.3-42.9); Hemoglobin 8.2 gm/dl (10.1-14.3); Mean Corpuscular HGB Conc 35 % (30-34); Mean Corpuscular Volume 98 fl (79-97); Platelet Count 347 K/mm3 (140-440); Red Blood Count 2.38 M/mm3 (3.65-5.03)
[2019-10-23 07:15] VITALS: BP 116/54
[2019-10-23] MEDS: FOLIC ACID 1 MG TAB PO SCH (09:34)
[2019-10-23] MEDS: MULTIVITAMINS ,THERAPEUTIC TAB PO SCH (09:34)
--- NOTE | 2019-10-23 09:44 | Discharge Summary ---
Providers - Providers Date of Admission: 10/22/19 17:06 Date of discharge: 10/23/19 Attending physician: YARELY ORTA 10/21/19 16:50 Consult to Wound/ET Nurse [CONS] Routine Reason For Exam: wound eval Primary care [facility]: [facility] BHAV[facility] Hospitalization Condition: Good Hospital course: pt presented with usual sickle cell crisis now resolvd and now pain well controlled Disposition: DC-01 TO HOME OR SELFCARE - Discharge Diagnoses (1) Sickle cell anemia with crisis Status: Acute Comment: pain much better controlled fu with oncology dr Chasity biswas cell (2) Anemia Status: Acute Qualifiers: Anemia type: unspecified type Qualified Code(s): D64.9 - Anemia, unspecified Core Measure Documentation - Palliative Care Palliative Care/ Comfort Measures: Not Applicable - Core Measures Any of the following diagnoses?: none Exam - Constitutional Vitals: Temp Pulse Resp BP Pulse Ox 98.5 F 80 18 116/54 89 10/23/19 06:11 10/23/19 06:11 10/23/19 06:11 10/23/19 06:11 10/23/19 06:11 General appearance: Present: no acute distress, well-nourished - EENT Eyes: Present: PERRL ENT: hearing intact, clear oral mucosa - Neck Neck: Present: supple, normal ROM - Respiratory Respiratory effort: normal Respiratory: bilateral: CTA - Cardiovascular Heart Sounds: Present: S1 & S2. Absent: rub, click - Extremities Extremities: pulses symmetrical, No edema Peripheral Pulses: within normal limits - Abdominal General gastrointestinal: Present: soft, non-tender, non-distended, normal bowel sounds Female genitourinary: Present: normal - Integumentary Integumentary: Present: clear, warm, dry - Musculoskeletal Musculoskeletal: gait normal, strength equal bilaterally - Psychiatric Psychiatric: appropriate mood/affect, intact judgment & insight - Neurologic Neurologic: CNII-XII intact, moves all extremities Plan Activity: no restrictions, other (stay hydrated) Special Instructions: smoking cessation Follow up with: SAMIR SADLER MD [Primary Care Provider] - 3-5 Days Prescriptions: Folic Acid [Folvite] 1 mg PO QDAY #30 tablet Multivitamin Tab [Multiple Vitamin TAB (Theragran)] 1 each PO QDAY #7 tablet oxyCODONE ER [oxyCONTIN ER] 20 mg PO Q8H #90 tablet Sennosides Tab [Senokot] 17.2 mg PO QHS #30 tablet
[2019-10-23 12:05] LABS: Anisocytosis 2+; Poikilocytosis 3+; Total Cells Counted 100
[2019-10-23 12:06] LABS: Ovalocytes 1+; Sickle Cells 1+; Target Cells Few
[2019-10-23 12:07] LABS: Platelet Estimate Consistent w Auto
== END 2019-10-23 10:57 | disposition home or self-care (01) | DRG 812 ==
LOC: ED 01:42 → 3A 04:52 → OBSVTOIN 10-22 17:06
PROVIDERS: ADMIT Internal Medicine; ATTEND Internal Medicine
PROC: 30233N1 Transfusion of Nonautologous Red Blood Cells into Peripheral Vein, Percutaneous Approach (ICD-10-PCS; principal; 2019-10-22)
DX: D57.00 Hb-SS disease with crisis, unspecified (principal); D72.829 Elevated white blood cell count, unspecified; Z90.49 Acquired absence of other specified parts of digestive tract; Z88.2 Allergy status to sulfonamides
CPT/HCPCS: 36415; 80048; 83615; 85007; 85025; 85045; 85660; 86850; 86870; 86900; 86901; 86922; 87116; G0378; J1650; J1885; J2270; J2405; J7030; J7040; P9016

== ENCOUNTER 2020-04-16 14:08 | Outpatient (CLI) | payer MEDICAID, OTHER ==
[2020-04-16] MEDS ORDERED: LIDOCAINE (4%) 40 MG/ML TOPICAL SOLN 50 ML BOTTLE TP ONE (14:17)
== END 2020-04-16 14:09 | disposition home or self-care (01) ==
LOC: WOUND 14:08
PROVIDERS: ATTEND Surgery
DX: I87.333 Chronic venous hypertension (idiopathic) with ulcer and inflammation of bilateral lower extremity (principal); L97.321 Non-pressure chronic ulcer of left ankle limited to breakdown of skin; L97.312 Non-pressure chronic ulcer of right ankle with fat layer exposed; G47.30 Sleep apnea, unspecified; Z90.49 Acquired absence of other specified parts of digestive tract; Z87.891 Personal history of nicotine dependence; F12.10 Cannabis abuse, uncomplicated
CPT/HCPCS: 11042; G0463; 99204; 99214

== ENCOUNTER 2020-04-28 13:58 | Outpatient (CLI) | payer OTHER ==
[2020-04-28] MEDS ORDERED: LIDOCAINE (4%) 40 MG/ML TOPICAL SOLN 50 ML BOTTLE TP ONE (14:04)
== END 2020-04-28 13:59 | disposition home or self-care (01) ==
LOC: WOUND 13:58
PROVIDERS: ATTEND Surgery
DX: I87.333 Chronic venous hypertension (idiopathic) with ulcer and inflammation of bilateral lower extremity (principal); L97.322 Non-pressure chronic ulcer of left ankle with fat layer exposed; L97.312 Non-pressure chronic ulcer of right ankle with fat layer exposed; G47.30 Sleep apnea, unspecified; F12.10 Cannabis abuse, uncomplicated; Z87.891 Personal history of nicotine dependence; Z90.49 Acquired absence of other specified parts of digestive tract

== ENCOUNTER 2020-06-09 14:38 | Outpatient (CLI) | payer OTHER ==
[2020-06-09] MEDS ORDERED: LIDOCAINE (4%) 40 MG/ML TOPICAL SOLN 50 ML BOTTLE TP ONE (14:50)
== END 2020-06-09 14:39 | disposition home or self-care (01) ==
LOC: WOUND 14:38
PROVIDERS: ATTEND Surgery
DX: I87.333 Chronic venous hypertension (idiopathic) with ulcer and inflammation of bilateral lower extremity (principal); L97.322 Non-pressure chronic ulcer of left ankle with fat layer exposed; L97.312 Non-pressure chronic ulcer of right ankle with fat layer exposed; G47.30 Sleep apnea, unspecified; F12.10 Cannabis abuse, uncomplicated; Z87.891 Personal history of nicotine dependence; Z90.49 Acquired absence of other specified parts of digestive tract

== ENCOUNTER 2020-07-07 14:15 | Outpatient (CLI) | payer OTHER ==
[2020-07-07] MEDS ORDERED: LIDOCAINE (4%) 40 MG/ML TOPICAL SOLN 50 ML BOTTLE TP NR (14:28)
== END 2020-07-07 14:16 | disposition home or self-care (01) ==
LOC: WOUND 14:15
PROVIDERS: ATTEND Surgery
DX: I87.333 Chronic venous hypertension (idiopathic) with ulcer and inflammation of bilateral lower extremity (principal); L97.322 Non-pressure chronic ulcer of left ankle with fat layer exposed; L97.312 Non-pressure chronic ulcer of right ankle with fat layer exposed; D57.1 Sickle-cell disease without crisis; G47.30 Sleep apnea, unspecified; F12.10 Cannabis abuse, uncomplicated; Z87.891 Personal history of nicotine dependence; Z90.49 Acquired absence of other specified parts of digestive tract

== ENCOUNTER 2020-10-06 13:40 | Outpatient (CLI) | payer OTHER ==
[2020-10-06] MEDS ORDERED: LIDOCAINE (4%) 40 MG/ML TOPICAL SOLN 50 ML BOTTLE TP ONE (13:42)
== END 2020-10-06 13:41 | disposition home or self-care (01) ==
LOC: WOUND 13:40
PROVIDERS: ATTEND Surgery
DX: I87.333 Chronic venous hypertension (idiopathic) with ulcer and inflammation of bilateral lower extremity (principal); L97.322 Non-pressure chronic ulcer of left ankle with fat layer exposed; L97.312 Non-pressure chronic ulcer of right ankle with fat layer exposed; D57.1 Sickle-cell disease without crisis; G47.30 Sleep apnea, unspecified; F12.10 Cannabis abuse, uncomplicated; Z87.891 Personal history of nicotine dependence; Z90.49 Acquired absence of other specified parts of digestive tract
CPT/HCPCS: 97605

== ENCOUNTER 2020-10-13 14:12 | Outpatient (CLI) | payer OTHER ==
[2020-10-13] MEDS ORDERED: LIDOCAINE (4%) 40 MG/ML TOPICAL SOLN 50 ML BOTTLE TP ONE (15:34)
== END 2020-10-13 14:13 | disposition home or self-care (01) ==
LOC: WOUND 14:12
PROVIDERS: ATTEND Surgery
DX: I87.333 Chronic venous hypertension (idiopathic) with ulcer and inflammation of bilateral lower extremity (principal); L97.312 Non-pressure chronic ulcer of right ankle with fat layer exposed; L97.322 Non-pressure chronic ulcer of left ankle with fat layer exposed; D57.1 Sickle-cell disease without crisis; G47.30 Sleep apnea, unspecified; F12.10 Cannabis abuse, uncomplicated; Z87.891 Personal history of nicotine dependence; Z90.49 Acquired absence of other specified parts of digestive tract

== ENCOUNTER 2020-10-20 14:40 | Outpatient (CLI) | payer OTHER ==
[2020-10-20] MEDS ORDERED: LIDOCAINE (4%) 40 MG/ML TOPICAL SOLN 50 ML BOTTLE TP ONE (15:00)
== END 2020-10-20 14:41 | disposition home or self-care (01) ==
LOC: WOUND 14:40
PROVIDERS: ATTEND Surgery
DX: I87.333 Chronic venous hypertension (idiopathic) with ulcer and inflammation of bilateral lower extremity (principal); L97.312 Non-pressure chronic ulcer of right ankle with fat layer exposed; L97.322 Non-pressure chronic ulcer of left ankle with fat layer exposed; D57.1 Sickle-cell disease without crisis; G47.30 Sleep apnea, unspecified; F12.10 Cannabis abuse, uncomplicated; Z87.891 Personal history of nicotine dependence; Z90.49 Acquired absence of other specified parts of digestive tract

== ENCOUNTER 2020-10-27 14:36 | Outpatient (CLI) | payer OTHER | END 2020-10-27 14:37 | disposition home or self-care (01) | LOC: WOUND 14:36 | PROVIDERS: ATTEND Surgery | DX: I87.333 Chronic venous hypertension (idiopathic) with ulcer and inflammation of bilateral lower extremity (principal); L97.312 Non-pressure chronic ulcer of right ankle with fat layer exposed; L97.322 Non-pressure chronic ulcer of left ankle with fat layer exposed; D57.1 Sickle-cell disease without crisis; G47.30 Sleep apnea, unspecified; F12.10 Cannabis abuse, uncomplicated; Z87.891 Personal history of nicotine dependence; Z90.49 Acquired absence of other specified parts of digestive tract ==

== ENCOUNTER 2020-11-03 14:34 | Outpatient (CLI) | payer OTHER ==
[2020-11-03] MEDS ORDERED: LIDOCAINE (4%) 40 MG/ML TOPICAL SOLN 50 ML BOTTLE TP ONE (14:35)
== END 2020-11-03 14:35 | disposition home or self-care (01) ==
LOC: WOUND 14:34
PROVIDERS: ATTEND Surgery
DX: I87.333 Chronic venous hypertension (idiopathic) with ulcer and inflammation of bilateral lower extremity (principal); L97.312 Non-pressure chronic ulcer of right ankle with fat layer exposed; L97.322 Non-pressure chronic ulcer of left ankle with fat layer exposed; D57.1 Sickle-cell disease without crisis; G47.30 Sleep apnea, unspecified; F12.10 Cannabis abuse, uncomplicated; Z87.891 Personal history of nicotine dependence; Z90.49 Acquired absence of other specified parts of digestive tract

== ENCOUNTER 2020-11-10 14:35 | Outpatient (CLI) | payer OTHER | END 2020-11-10 14:36 | disposition home or self-care (01) | LOC: WOUND 14:35 | PROVIDERS: ATTEND Surgery | DX: I87.333 Chronic venous hypertension (idiopathic) with ulcer and inflammation of bilateral lower extremity (principal); L97.312 Non-pressure chronic ulcer of right ankle with fat layer exposed; L97.322 Non-pressure chronic ulcer of left ankle with fat layer exposed; D57.1 Sickle-cell disease without crisis; G47.30 Sleep apnea, unspecified; F12.10 Cannabis abuse, uncomplicated; Z87.891 Personal history of nicotine dependence; Z90.49 Acquired absence of other specified parts of digestive tract ==

== ENCOUNTER 2020-11-17 14:38 | Outpatient (CLI) | payer OTHER ==
[2020-11-17] MEDS ORDERED: LIDOCAINE (4%) 40 MG/ML TOPICAL SOLN 50 ML BOTTLE TP ONE (14:41)
== END 2020-11-17 14:39 | disposition home or self-care (01) ==
LOC: WOUND 14:38
PROVIDERS: ATTEND Surgery
DX: I87.333 Chronic venous hypertension (idiopathic) with ulcer and inflammation of bilateral lower extremity (principal); L97.312 Non-pressure chronic ulcer of right ankle with fat layer exposed; L97.322 Non-pressure chronic ulcer of left ankle with fat layer exposed; D57.1 Sickle-cell disease without crisis; G47.30 Sleep apnea, unspecified; F12.10 Cannabis abuse, uncomplicated; Z87.891 Personal history of nicotine dependence; Z90.49 Acquired absence of other specified parts of digestive tract

== ENCOUNTER 2020-11-28 13:22 | Outpatient (CLI) | payer OTHER ==
--- NOTE | 2020-11-30 08:05 | Vascular Lab Report ---
DUPLEX DOPPLER LOWER EXTREMITY ARTERIAL, BILATERAL INDICATION / CLINICAL INFORMATION: UNSPECIFIED OPEN WOUND. TECHNIQUE: Arterial duplex examination of both lower extremities performed using B-mode, color flow and spectral Doppler assessment. FINDINGS: RIGHT: Common Femoral Artery: PSV 166 cm/sec. Triphasic waveform. Proximal SFA: PSV 178 cm/sec. Biphasic waveform. Mid SFA: PSV 167 cm/sec. Biphasic waveform. Distal SFA: PSV 157 cm/sec. Biphasic waveform. Popliteal artery: PSV 115 cm/sec. Biphasic waveform. Posterior tibial artery: PSV 76 cm/sec. Biphasic waveform. Dorsalis Pedis Artery: PSV 34 cm/sec. Biphasic waveform. LEFT: Common Femoral Artery: PSV 155 cm/sec. Triphasic waveform. Proximal SFA: PSV 174 cm/sec. Triphasic waveform. Mid SFA: PSV 175 cm/sec. Triphasic waveform. Distal SFA: PSV 160 cm/sec. Biphasic waveform. Popliteal artery: PSV 117 cm/sec. Biphasic waveform. Posterior tibial artery: PSV 37 cm/sec. Triphasic waveform. Dorsalis Pedis Artery: PSV 45 cm/sec. Biphasic waveform. IMPRESSION: 1. Increased velocities throughout both lower extremities without hemodynamically significant stenosi s. Ankle-Brachial Index (HILDA): - Calcified arteries > 1.4 - Normal = 0.9-1.4 - Mild PAD = 0.-0.89 - Moderate PAD = 0.51-0.69 - Severe PAD < 0.5 Doppler Waveform: - Triphasic is normal. - Biphasic is abnormal if clear transition from triphasic signal along vascular tree. - Monophasic is abnormal. Signer Name: Nish Trevizo MD Signed: 11/30/2020 8:01 AM Workstation Name: [id number]
== END 2020-11-28 13:23 | disposition home or self-care (01) ==
LOC: VAS 13:22
PROVIDERS: ATTEND Surgery
DX: S81.801D Unspecified open wound, right lower leg, subsequent encounter (principal); S81.802D Unspecified open wound, left lower leg, subsequent encounter; X58.XXXD Exposure to other specified factors, subsequent encounter
CPT/HCPCS: 93925

== ENCOUNTER 2020-12-01 14:32 | Outpatient (CLI) | payer OTHER ==
[2020-12-01] MEDS ORDERED: LIDOCAINE (4%) 40 MG/ML TOPICAL SOLN 50 ML BOTTLE TP ONE (14:43)
== END 2020-12-01 14:33 | disposition home or self-care (01) ==
LOC: WOUND 14:32
PROVIDERS: ATTEND Surgery
DX: I87.333 Chronic venous hypertension (idiopathic) with ulcer and inflammation of bilateral lower extremity (principal); L97.312 Non-pressure chronic ulcer of right ankle with fat layer exposed; L97.322 Non-pressure chronic ulcer of left ankle with fat layer exposed; D57.1 Sickle-cell disease without crisis; G47.30 Sleep apnea, unspecified; F12.10 Cannabis abuse, uncomplicated; Z87.891 Personal history of nicotine dependence; Z90.49 Acquired absence of other specified parts of digestive tract

== ENCOUNTER 2020-12-08 15:12 | Outpatient (CLI) | payer OTHER ==
[2020-12-08] MEDS ORDERED: LIDOCAINE (4%) 40 MG/ML TOPICAL SOLN 50 ML BOTTLE TP ONE (15:28)
== END 2020-12-08 15:13 | disposition home or self-care (01) ==
LOC: WOUND 15:12
PROVIDERS: ATTEND Surgery
DX: I87.333 Chronic venous hypertension (idiopathic) with ulcer and inflammation of bilateral lower extremity (principal); L97.312 Non-pressure chronic ulcer of right ankle with fat layer exposed; L97.322 Non-pressure chronic ulcer of left ankle with fat layer exposed; D57.1 Sickle-cell disease without crisis; G47.30 Sleep apnea, unspecified; F12.10 Cannabis abuse, uncomplicated; Z87.891 Personal history of nicotine dependence; Z90.49 Acquired absence of other specified parts of digestive tract

== ENCOUNTER 2020-12-22 13:48 | Outpatient (CLI) | payer OTHER ==
[2020-12-22] MEDS ORDERED: LIDOCAINE (4%) 40 MG/ML TOPICAL SOLN 50 ML BOTTLE TP SCH (14:30)
== END 2020-12-22 13:49 | disposition home or self-care (01) ==
LOC: WOUND 13:48
PROVIDERS: ATTEND Surgery
DX: I87.333 Chronic venous hypertension (idiopathic) with ulcer and inflammation of bilateral lower extremity (principal); L97.312 Non-pressure chronic ulcer of right ankle with fat layer exposed; L97.322 Non-pressure chronic ulcer of left ankle with fat layer exposed; D57.1 Sickle-cell disease without crisis; G47.30 Sleep apnea, unspecified; F12.10 Cannabis abuse, uncomplicated; Z87.891 Personal history of nicotine dependence; Z90.49 Acquired absence of other specified parts of digestive tract

== ENCOUNTER 2021-01-05 13:17 | Outpatient (CLI) | payer OTHER ==
[2021-01-05] MEDS ORDERED: LIDOCAINE (4%) 40 MG/ML TOPICAL SOLN 50 ML BOTTLE TP ONE (14:47)
== END 2021-01-05 13:18 | disposition home or self-care (01) ==
LOC: WOUND 13:17
PROVIDERS: ATTEND Surgery
DX: I87.333 Chronic venous hypertension (idiopathic) with ulcer and inflammation of bilateral lower extremity (principal); L97.312 Non-pressure chronic ulcer of right ankle with fat layer exposed; L97.322 Non-pressure chronic ulcer of left ankle with fat layer exposed; D57.1 Sickle-cell disease without crisis; G47.30 Sleep apnea, unspecified; F12.10 Cannabis abuse, uncomplicated; Z87.891 Personal history of nicotine dependence; Z90.49 Acquired absence of other specified parts of digestive tract

== ENCOUNTER 2021-01-26 11:08 | Outpatient (CLI) | payer OTHER ==
[2021-01-26] MEDS ORDERED: LIDOCAINE (4%) 40 MG/ML TOPICAL SOLN 50 ML BOTTLE TP ONE (11:17)
== END 2021-01-26 11:09 | disposition home or self-care (01) ==
LOC: WOUND 11:08
PROVIDERS: ATTEND Surgery
DX: I87.333 Chronic venous hypertension (idiopathic) with ulcer and inflammation of bilateral lower extremity (principal); L97.312 Non-pressure chronic ulcer of right ankle with fat layer exposed; L97.322 Non-pressure chronic ulcer of left ankle with fat layer exposed; D57.1 Sickle-cell disease without crisis; G47.30 Sleep apnea, unspecified; F12.10 Cannabis abuse, uncomplicated; Z87.891 Personal history of nicotine dependence; Z90.49 Acquired absence of other specified parts of digestive tract